=== PATIENT | male | born 1960 | race Caucasian/White ===

== ENCOUNTER 2022-08-09 16:01 | Emergency (ER) | payer SELFPAY ==
[~2022-08-09] VITALS: Ht 188 cm; Wt 81.6 kg
[2022-08-09 16:45] VITALS: BP 128/91
[2022-08-09 17:01] VITALS: BP 147/95
[2022-08-09 17:15] VITALS: BP 137/99
[2022-08-09 17:28] VITALS: BP 137/99
== END 2022-08-09 17:33 | disposition home or self-care (01) | DRG 156 ==
LOC: ED 16:01
DX: S01.312A Laceration without foreign body of left ear, initial encounter (principal); W01.198A Fall on same level from slipping, tripping and stumbling with subsequent striking against other object, initial encounter; Y92.830 Public park as the place of occurrence of the external cause